=== PATIENT | male | born 1950 | race Caucasian/White ===

== ENCOUNTER 2020-10-05 12:50 | Outpatient (CLI) | payer MEDICARE ==
--- NOTE | 2020-10-05 14:01 | CT ---
Low-dose screening chest CT: 10/05/2020 COMPARISON: None HISTORY: 70-year-old male undergoing screening examination, history of current smoker, 50 year histor y of smoking, personal history of nicotine dependence Technique: Axial CT imaging at 2 mm intervals through the chest without contrast. Coronal and sagitta l 3-D reformatted imaging obtained. FINDINGS: Evaluation of the imaged viscera, the vascular structures, and evaluation for lymphadenopat hy is limited without contrast media. A right adrenal lesion is partially visualized on this examination, measuring approximately 2.2 cm. There is extensive coronary arterial calcification. Multifocal atherosclerotic calcification of the a ortic arch, the proximal great vessels, and the descending thoracic aorta/upper abdominal aorta noted. Limited assessment of the chest for lymphadenopathy appears unremarkable. No pleural, pericardial, or mediastinal fluid. Left upper lobe: No discrete pulmonary parenchymal mass lesion/nodule. Left lower lobe: There are a few calcified granulomata noted. No suspicious nodule. Right upper lobe: No significant pulmonary parenchymal mass lesion/nodule. Right middle lobe: No discrete mass or pulmonary nodule. Right lower lobe: No discrete parenchymal mass or nodule. Review of the osseous structures demonstrates no acute findings. IMPRESSION: Lung RADS category 1-negative. Continue annual screening with low-dose chest CT. Lung RADS category S-extensive coronary arterial calcification. There is an adrenal mass on the right which is not fully characterized on this examination. Recommend CT of the abdomen with and without contrast using the adrenal mass protocol. CODE T
== END 2020-10-05 12:51 | disposition home or self-care (01) ==
LOC: BICCT 12:50
PROVIDERS: ATTEND Family Medicine Sports Medicine
DX: Z12.2 Encounter for screening for malignant neoplasm of respiratory organs (principal); F17.210 Nicotine dependence, cigarettes, uncomplicated; I25.10 Atherosclerotic heart disease of native coronary artery without angina pectoris; E27.9 Disorder of adrenal gland, unspecified
CPT/HCPCS: 71271

== ENCOUNTER 2021-04-30 07:44 | Outpatient (CLI) | payer MEDICARE | END 2021-04-30 07:45 | disposition home or self-care (01) | LOC: PET 07:44 | PROVIDERS: ATTEND Family Medicine Sports Medicine | DX: E27.9 Disorder of adrenal gland, unspecified (principal); D35.02 Benign neoplasm of left adrenal gland; D35.01 Benign neoplasm of right adrenal gland; N13.5 Crossing vessel and stricture of ureter without hydronephrosis | CPT/HCPCS: 78815; A9552 ==

== ENCOUNTER 2024-03-05 13:36 | Outpatient (CLI) | payer OTHER | END 2024-03-05 13:37 | disposition home or self-care (01) | PROVIDERS: ATTEND Psychiatry & Neurology Neurology | DX: I63.9 Cerebral infarction, unspecified (principal) | CPT/HCPCS: 93225; 93226 ==